=== PATIENT | female | born 1995 | race Caucasian/White ===

== ENCOUNTER → 2020-08-31 17:36 | Outpatient (CLI) | payer MEDICAID, SELFPAY ==
[2020-09-02 07:43] LABS: Rubella Antibodies, IgG 1.99 index (Immune >0.99)
[2020-09-02 11:27] LABS: Hepatitis B Surface Antigen Negative (Negative)
[2020-09-03 13:30] LABS: Varicella-Zoster Ab, IgM <0.91 index (0.00-0.90)
[2020-09-03 17:51] LABS: Measles Antibodies, IgG 72.3 AU/mL (Immune >16.4)
== END ==
PROVIDERS: Visit Provider Nurse Practitioner Family
DX: Z23 Encounter for immunization (principal)
CPT/HCPCS: 86735; 86762; 86765; 86787; 87340

== ENCOUNTER → 2020-09-13 13:59 | Outpatient (CLI) | payer MEDICAID, SELFPAY ==
[2020-09-15 10:45] LABS: Hep B Surface Ab, Qual Non Reactive (.)
[2020-09-16 00:05] LABS: Varicella Zoster IgG 687 index (Immune >165)
== END ==
PROVIDERS: Visit Provider Physician Assistant
DX: Z01.84 Encounter for antibody response examination (principal)
CPT/HCPCS: 86706; 86787

== ENCOUNTER 2020-12-24 10:10 | Emergency (ER) | payer MEDICAID, SELFPAY ==
[2020-12-24 11:24] LABS: UTC Strep Screen (Rapid) Negative (Negative)
[2020-12-24 11:28] VITALS: BP 123/70; PULSE 69; RESP 18; TEMP 36.9; O2SAT 97; BMI 36.8
--- NOTE | 2020-12-24 11:33 | HMH.EDUTC ---
[facility] [place] Clinical Impression: Otitis media Qualifiers: Otitis media type: unspecified Laterality: left Qualified Code(s): H66.92 - Otitis media, unspecified, left ear Disposition: Home, Self-Care Condition on Discharge: Good Instructions: Middle Ear Infections (Alternative Therapy), Middle Ear Infection, Amoxicillin and Clavulanic Acid Additional Instructions: *Monitor Temp, Over the counter Motrin or Tylenol as directed/as needed Tylenol every 4 hours and Motrin every 6 hours (as long as your family doctor has told you that you can take it) for fever or pain. and straight to ER if unable to lower temp less than 101.0 after medication given *Warm salt water gargles may help to soothe the throat *Throat Lozenges *Warm fluids like tea with honey may help to soothe the throat *Sleep elevated *Humidifier/Vaporizer Take medications as prescribed Your throat swab was sent for culture. Those results are typically sent to your primary care. Be sure to follow up in 2-3 days with your family doctor/primary care physician if no improvement so they can review those result and treat if necessary. If you don?t have a primary care doctor, I recommend you get one but in the mean time, you will have to return to a walk in clinic Follow up IMMEDIATELY for new or worsening symptoms or no Noticeable improvement over the next 48-72 hours. 911 for difficulty breathing or swallowing Prescriptions: Amoxicillin/Potassium Clav [Augmentin 875-125 Tablet] 1 tab PO Q12H 10 Days #20 tab Transmission Status: Pending to [facility] # methylPREDNISolone [Medrol 4mg tab] 4 mg PO DIRECTED #21 tab Transmission Status: Pending to [facility] # Referrals: Provider,Referral, [Primary Care Provider] - As needed Forms: Work/School Release Time of Disposition: 11:46 Medical Decision Making - Gabo Inquiry Pt receiving controlled substance: No Gabo was queried for this patient: No Vital Signs: 12/24/20 11:28 Temperature 98.4 F Temperature Source Oral Pulse Rate [Left] 69 Respiratory Rate 18 Blood Pressure [Right Arm] 123/70 Blood Pressure Mean [Right Arm] 87 02 Sat by Pulse Oximetry 97 - Lab Data Lab results reviewed: Yes: I reviewed the patient's lab results. Lab Results 12/24/20 11:23: Strep Scn Rapid Clinic Negative Orders (Tests/Meds): ORDERS Category Date Time Status Strep Screen Confirmation Routine Micro 12/24/20 11:23 Received [facility] [place] - General Stated complaint: sore throat,cough,runny nose,headache Time Seen by Provider: 12/24/20 11:33 Mode of Arrival: Ambulatory Source of Information: Patient Limitations: No Limitations Description of Symptoms (Recalled from Triage Doc. by RN): pt c/o sore throat, hoarseness, nasal drainage, and L ear pain. HEENT Symptoms (Recalled from RN notes): Yes (L ear pain, nasal drainage, and sore throat) Resp Symptoms (Recalled from RN notes): No Skin Symptoms (Recalled from RN notes): No MS Symptoms (Recalled from RN notes): No Functional Status (Recalled from RN notes): na - History of Present Illness Provider Complaint: Patient states that she has been having pain in her left ear, sore throat, and scratchy voice State that the pain in her left ear has continued to get worse so today she could not talk at all so she came in - Related Data Previous Rx's Medication Instructions Recorded Amoxicillin/Potassium Clav 1 tab PO Q12H 10 Days #20 tab 12/24/20 [Augmentin 875-125 Tablet] methylPREDNISolone [Medrol 4mg 4 mg PO DIRECTED #21 tab 12/24/20 tab] Allergies Allergy/AdvReac Type Severity Reaction Status Date / Time Sulfa (Sulfonamide Allergy Unknown Unknown Verified 10/26/20 09:05 Antibiotics) allergy reaction - Worker's Comp Is this a Worker's Comp case?: No [facility] History - Hepatitis A Screen Drug use history?: No High risk sexual behaviors?: No History of sexually transmitted infection?:
[2020-12-24 12:04] VITALS: BP 123/70; PULSE 69; RESP 18; TEMP 36.9
== END 2020-12-24 12:14 | disposition home or self-care (01) ==
PROVIDERS: Emergency Provider Nurse Practitioner; PCP Nurse Practitioner Family
DX: H66.92 Otitis media, unspecified, left ear (principal)
CPT/HCPCS: 87880; 99203; G0463

== ENCOUNTER → 2022-06-17 23:28 | Outpatient (CLI) | payer MEDICAID, SELFPAY | PROVIDERS: PCP Student in an Organized Health Care Education/Training Program; Visit Provider Student in an Organized Health Care Education/Training Program | DX: J02.9 Acute pharyngitis, unspecified (principal) | CPT/HCPCS: 87070 ==

== ENCOUNTER 2022-09-01 12:41 | Emergency (ER) | payer BC, MEDICAID, SELFPAY ==
[2022-09-01 13:07] VITALS: BP 148/100; PULSE 100; RESP 16; TEMP 36.7; O2SAT 98; BMI 35.3
--- NOTE | 2022-09-01 13:16 | EXP.UTC ---
Discharge Plan Disposition Patient Disposition: Still a Patient Condition: Fair Prescriptions Prescriptions: No Action amoxicillin 500 mg capsule 500 mg PO BID 10 Days Qty: 20 0RF Referrals Follow up/Referrals: Provider,Referral, MD [Primary Care Provider] - See instructions Clinical Impressions Clinical Impression: Abdominal pain Discharge ED Provider: Anders De Jesus [facility] [place] HPI General Stated complaint: Abdominal pain; nausea; vomiting Time Seen by Provider: 09/01/22 12:43 History of Present Illness Provider Complaint: She states that for the past 2 days she has had right lower abdominal pain. She states that at first she had diarrhea, but that stopped soon after it started hurting. She also vomited when it first started, but since then she has just had nausea and poor appetite. She denies any fever, but she has had chilling. Related Data Previous Rx's Medication Instructions Recorded amoxicillin 500 mg capsule 500 mg PO BID 10 days #20 caps 06/17/22 Allergies Allergy/AdvReac Type Severity Reaction Status Date / Time Sulfa (Sulfonamide Allergy Unknown Unknown Verified 06/17/22 09:49 Antibiotics) allergy reaction [facility] Disclaimer: The information contained in this section may have been updated after the patient was seen, as this information can be updated by other users. Social History Smoking Status: Never smoker alcohol intake: never current occupational status: employed Travel in the last 8 weeks: None household members: family ROS Obtained: Yes All systems reviewed & no additional complaints except as documented Constitutional Constitutional: Denies chills, Denies fever(s) and Reports poor appetite ENT Ears, Nose, Mouth, and Throat: Denies dizziness and Denies sore throat Cardiovascular Cardiovascular: Denies dyspnea Respiratory Respiratory: Denies chest congestion, Denies cough and Denies dyspnea Gastrointestinal Gastrointestingal: Reports as per HPI Genitourinary Female Genitourinary: Denies difficulty voiding, Denies dysuria, Denies hematuria, Denies urinary frequency, Denies urinary incontinence, Denies urinary hesitancy and Denies urinary urgency Musculoskeletal Musculoskeletal: Denies arthralgias Integumentary/Breasts Skin/Breast: Denies rash Neurologic Neurologic: Denies dizziness Physical Exam General General appearance: alert and in no apparent distress Head Head exam: atraumatic, normocephalic and normal inspection Eye Eye exam: Present normal appearance, PERRL and EOMI ENT ENT exam: Present normal exam, normal oropharynx, mucous membranes moist, TM's normal bilaterally and normal external ear exam Neck Neck exam: Present normal inspection, full ROM and trachea midline; Absent meningismus or lymphadenopathy Chest Chest inspection: Present normal inspection and symmetric chest wall rise; Absent tenderness Respiratory Respiratory exam: Present normal lung sounds bilaterally; Absent respiratory distress Cardiovascular Cardiovascular exam: Present regular rate and normal rhythm; Absent JVD Abdominal Exam Abdominal exam: Present soft and normal bowel sounds; Absent distention, tenderness or guarding Extremities Exam Extremities exam: Present normal inspection, full ROM and normal capillary refill; Absent calf tenderness Back Exam Back exam: Present normal inspection; Absent tenderness Neurological Exam Neurological exam: Present alert and oriented X3 Psychiatric Psychiatric exam: Present normal affect and normal mood Skin Skin exam: Present warm, dry, intact and normal color Lymphatic Lymphatic Findings: no adenopathy Medical Decision Making Medical Records Medical records reviewed: No I reviewed the patient's medical records. Gabo Inquiry Pt receiving controlled substance: No Medical Decision Narrative: She was transferred to the er due to her abdominal pain with no clear etiology.
[2022-09-01 13:25] VITALS: BP 147/86; PULSE 85; O2SAT 100
[2022-09-01 13:50] VITALS: BP 167/107; PULSE 102; RESP 16; TEMP 36.7; O2SAT 99; BMI 35.3
[2022-09-01 14:17] LABS: Basophils % 0.2 % (0.1-2.0); Eosinophils % 0.2 % (0.1-12.0); Hematocrit 43.1 % (37.0-47.0); Hemoglobin 13.8 g/dL (12.2-16.2); Lymphocytes % 10.8 % (10-50); Mean Corpuscular HGB Conc 32.1 g/dL (31.8-35.4); Mean Corpuscular Volume 93.3 fl (81-99); Mean Platelet Volume 8.4 fl (7.4-10.4); Monocytes # 0.5 K/mm3 (0.1-1.0); Monocytes % 5.3 % (1.7-9.3); Neutrophils # 7.6 K/mm3 (1.8-7.8); Neutrophils % 83.5 % (37.0-80.0); Platelet Count 237 K/mm3 (142-424); Red Blood Count 4.62 M/mm3 (4.20-5.40); Red Cell Distribution Width 12.7 % (11.5-17.5); White Blood Count 9.1 K/mm3 (4.8-10.8)
--- NOTE | 2022-09-01 14:23 | HMH.EDGENADL ---
Discharge Plan Disposition Patient Disposition: Home, Self-Care Condition: Fair Prescriptions Prescriptions: No Action amoxicillin 500 mg capsule 500 mg PO BID 10 Days Qty: 20 0RF Referrals Follow up/Referrals: Provider,Referral, MD [Primary Care Provider] - See instructions Clinical Impressions Clinical Impression: Abdominal pain, Diarrhea Instructions Patient Instructions: DI for Acute Abdominal Pain Discharge ED Provider: Rajat Dodson General Adult HPI General Chief complaint: Abdominal Pain Stated complaint: Abdominal pain; nausea; vomiting Time Seen by Provider: 09/01/22 12:43 Mode of Arrival: Ambulatory Source of Information: Patient Limitations: No Limitations Description of Symptoms (Recalled from ER Triage Doc. by RN): Pt reports began having diarrhea of last week, reports began having chills, vomitting and cramping type abd pain. Pt reports yesterday had blood stools x3 episodes, pt reports no appetite and nausea. Pt reports she took prednisone lastnight to help with abd bloating, reports it did help but woke this morning with same symptoms History of Present Illness HPI narrative: This is a 27-year-old female with no relevant medical history presenting with abdominal pain, cramping, diarrhea. Patient states that she started having diarrhea and abdominal cramping 5 days prior to arrival. It was initially watery, was intermittently bloody, then return to being watery. Having numerous episodes a day. Has had multiple episodes of nonbloody, nonbilious emesis. Patient having associated mild abdominal cramping that is lower quadrants, does not radiate. Not associated with fevers, chills, dysuria or hematuria, abnormal vaginal discharge or bleeding. Patient states that [place], nobody else in the trip has similar symptoms. She also has numerous chickens. No other associated environmental exposures or relevant history. Related Data Previous Rx's Medication Instructions Recorded amoxicillin 500 mg capsule 500 mg PO BID 10 days #20 caps 06/17/22 Allergies Allergy/AdvReac Type Severity Reaction Status Date / Time Sulfa (Sulfonamide Allergy Unknown Unknown Verified 06/17/22 09:49 Antibiotics) allergy reaction [facility] Disclaimer: The information contained in this section may have been updated after the patient was seen, as this information can be updated by other users. Social History Smoking Status: Never smoker alcohol intake: never current occupational status: employed Travel in the last 8 weeks: None household members: family ROS Obtained: Yes All systems reviewed & no additional complaints except as documented Physical Exam General General appearance: alert and in no apparent distress Respiratory Respiratory exam: Present normal lung sounds bilaterally; Absent respiratory distress Cardiovascular Cardiovascular exam: Present regular rate and normal rhythm Neurological Exam Neurological exam: Present alert, oriented X3 and CN II-XII intact Skin Skin exam: Present erythema (About neck and face) Medical Decision Making Medical Records Medical records reviewed: Yes I reviewed the patient's medical records. Gabo Inquiry Pt receiving controlled substance: No Gabo was queried for this patient: No Vital Signs: 09/01/22 13:07 09/01/22 13:50 09/01/22 13:25 Temperature 98.1 F 98.1 F Temperature Source Oral Oral Pulse Rate 85 Pulse Rate [Radial] 100 H 102 H Respiratory Rate 16 16 Blood Pressure 147/86 H Blood Pressure [Right Arm] 148/100 H 167/107 H Blood Pressure Mean [Right Arm] 116 127 Blood Pressure Source [Right Arm] Automatic Cuff Blood Pressure Position [Right Arm] Sitting Sitting 02 Sat by Pulse Oximetry 98 99 100 Oxygen Delivery Method Room Air Room Air Lab Data Lab results reviewed: Yes I reviewed the patient'
[2022-09-01 14:26] LABS: Alanine Aminotransferase 23 U/L (12-78); Albumin Level 4.1 g/dl (3.5-5.0); Albumin/Globulin Ratio 1.3 (1.1-1.8); Alkaline Phosphatase 107 U/L (38-126); Anion Gap 11.7 mEq/L (5-15); Aspartate Amino Transferase 32 U/L (14-36); Bilirubin,Total 0.7 mg/dl (0.2-1.3); Blood Urea Nitrogen 10 mg/dl (7-17); Calcium 9.3 mg/dl (8.4-10.2); Carbon Dioxide 29 mmol/L (22.0-30.0); Chloride 104 mmol/L (98-107); Creatinine Clearance Estimated 187 mL/min (50-200); Estimated Glomerular Filt Rate 119 ml/min (>60); GFR (African American) 144 ML/MIN (>60); Globulin 3.1 g/dL (1.3-3.2); Glucose 102 mg/dl (74-100); Lipase 50 U/L (23-300); Potassium 3.7 mmoL/L (3.5-5.1); Sodium 141 mmol/L (136-145); Total Protein,Serum 7.2 g/dl (6.3-8.2)
--- NOTE | 2022-09-01 14:39 | PC.NURSE ---
Warm blanket provided. Pt updated on plan of care.
--- NOTE | 2022-09-01 15:08 | PC.NURSE ---
contacted rad to check on status of u/a results, reports they will be approx 5 mins
[2022-09-01 15:10] LABS: Microscopic, Urine URINE MICROSCOPIC (MICROSCOPIC)
[2022-09-01 15:16] LABS: Appearance,Urine CLEAR (Clear); Blood, Urine TRACE-I (Negative); Color,Urine YELLOW (Yellow); Glucose,Urine (UA) Negative (Negative); Ketones,Urine Negative (Negative); Leukocyte Esterase,Urine Negative (Negative); Nitrate,Urine Negative (Negative); Protein,Urine TRACE (Negative); Specific Gravity, Urine 1.025 (1.005-1.030); Urobilinogen,Urine 0.2 EU/dl (0.2)
[2022-09-01 15:19] LABS: Bilirubin,Urine Negative (Negative)
[2022-09-01 15:20] LABS: Urine Pregnancy, HCG Qual. Negative (Negative)
--- NOTE | 2022-09-01 15:22 | PC.NURSE ---
STOOL SPEC. COLLECTED AND SENT TO LAB
[2022-09-01 15:24] LABS: Adenovirus F 40/41, stool Not Detected (NotDetected); Astrovirus Not Detected (NotDetected); Clostridium Difficile A/B, PCR Not Detected (NotDetected); Cryptosporidium Not Detected (NotDetected); Cyclospora Cayetanesis Not Detected (NotDetected); Entamoeba histolytica Not Detected (NotDetected); Enteroaggregative E coli Not Detected (NotDetected); Enteropathogenic E coli Not Detected (NotDetected); Enterotoxigenic E coli Not Detected (NotDetected); Giardia lamblia Not Detected (NotDetected); Norovirus Not Detected (NotDetected); Plesimonas Shigalloides, PCR Not Detected (NotDetected); Rotavirus A Not Detected (NotDetected); Salmonella, PCR Not Detected (NotDetected); Sapovirus Not Detected (NotDetected); Shiga-like toxin E coli Not Detected (NotDetected); Shigella Enterovasive E coli Not Detected (NotDetected); Vibrio Cholerae Not Detected (NotDetected); Vibrio, PCR Not Detected (NotDetected); Yersinia Entercolitica, PCR Not Detected (NotDetected)
[2022-09-01 15:36] LABS: Occult Blood,Stool Positive (Negative)
--- NOTE | 2022-09-01 15:37 | PC.NURSE ---
ER MD Dodson at
[2022-09-01 15:40] VITALS: BP 128/79; PULSE 61; O2SAT 100
--- NOTE | 2022-09-01 15:43 | PC.NURSE ---
rounded on pt, pt sitting up in bed, states no needs at this time, call light in reach
[2022-09-01 15:55] VITALS: BP 128/79; PULSE 72; RESP 18; TEMP 36.7; O2SAT 100
[2022-09-01 17:08] LABS: Bacteria,Urine Trace /lpf; Mucus,Urine Trace /lpf; Squamous Epithelial Cell,Urine Occasional #/hpf (0-5)
[2022-09-01 17:14] LABS: Campylobacter Detected (NotDetected)
--- NOTE | 2022-09-01 17:23 | PC.NURSE ---
lab called with results of diarrhea panel. Notified EM Ortiz, states no treatment needed for unless dehydrated or not tolerated diarrhea well. Called pt to notify her of diarrhea panel results and what EM Ortiz had stated. Also cautioned pt about needing to contact infection control prior to returning to work.
== END 2022-09-01 15:55 | disposition home or self-care (01) ==
LOC: ER 13:04 → UTC 13:06 → ER 13:31
PROVIDERS: Emergency Provider Emergency Medicine
DX: R10.31 Right lower quadrant pain (principal); R10.32 Left lower quadrant pain; R19.7 Diarrhea, unspecified; R11.2 Nausea with vomiting, unspecified
CPT/HCPCS: 80053; 81001; 81025; 82272; 83690; 85025; 87045; 87506; 96361; 96374; 99285; G0328; J2405

== ENCOUNTER → 2023-01-23 23:53 | Outpatient (CLI) | payer BC, SELFPAY | PROVIDERS: PCP Student in an Organized Health Care Education/Training Program; Visit Provider Student in an Organized Health Care Education/Training Program | DX: J02.9 Acute pharyngitis, unspecified (principal) | CPT/HCPCS: 87070 ==

== ENCOUNTER 2023-03-15 09:09 | Emergency (ER) | payer BC, SELFPAY ==
[2023-03-15 09:20] VITALS: BP 108/70; PULSE 82; RESP 22; TEMP 37; O2SAT 97; BMI 38.3
[2023-03-15 09:38] LABS: UTC Strep Screen (Rapid) Negative (Negative)
[2023-03-15 09:39] VITALS: BP 108/70; PULSE 82; RESP 22; TEMP 37; O2SAT 97
--- NOTE | 2023-03-15 09:42 | EXP.UTC ---
Discharge Plan Disposition Patient Disposition: Home, Self-Care Condition: Good Prescriptions Prescriptions: New amoxicillin 500 mg capsule 500 mg PO BID 10 Days Qty: 20 0RF Referrals Follow up/Referrals: Provider,Referral, MD [Primary Care Provider] - See instructions Activity Restrictions/Add. Instructions Additional Instructions/Restrictions: *Monitor Temp, Over the counter Motrin or Tylenol as directed/as needed Tylenol every 4 hours and Motrin every 6 hours (as long as your family doctor has told you that you can take it) for fever or pain. and straight to ER if unable to lower temp less than 101.0 after medication given *Warm salt water gargles may help to soothe the throat *Throat Lozenges? *Warm fluids like tea with honey may help to soothe the throat? *Sleep elevated *Humidifier/Vaporizer *Your throat swab was sent for culture. Those results are typically sent to your primary care. Be sure to follow up in 2-3 days with your family doctor/primary care physician if no improvement so they can review those result and treat if necessary. If you don?t have a primary care doctor, I recommend you get one but in the mean time, you will have to return to a walk in clinic Follow up IMMEDIATELY for new or worsening symptoms or no Noticeable improvement over the next 48-72 hours. 911 for difficulty breathing or swallowing Clinical Impressions Clinical Impression: Pharyngitis Qualifiers: Pharyngitis/tonsillitis etiology: unspecified etiology Qualified Code(s): J02.9 - Acute pharyngitis, unspecified Instructions Patient Instructions: Sore Throat Discharge ED Provider: Cari Ferguson [facility] General Stated complaint: sore throat Mode of Arrival: Ambulatory Source of Information: Patient Limitations: No Limitations Time Seen by Provider: 03/15/23 09:42 Description of Symptoms (Recalled from Triage Doc. by RN): PATIENT C/O SORE THROAT SINCE YESTERDAY HEENT Symptoms (Recalled from RN notes): Yes Resp Symptoms (Recalled from RN notes): No Skin Symptoms (Recalled from RN notes): No MS Symptoms (Recalled from RN notes): No Functional Status (Recalled from RN notes): WNL History of Present Illness Provider Complaint: Patient states that she has been having sore throat for the last couple of days and got worse yesterday States that her kids are home with strep throat and now feels like she may have it too so she came in Related Data Previous Rx's Medication Instructions Recorded amoxicillin 500 mg capsule 500 mg PO BID 10 days #20 caps 03/15/23 Allergies Allergy/AdvReac Type Severity Reaction Status Date / Time Sulfa (Sulfonamide Allergy Unknown Unknown Verified 01/23/23 08:14 Antibiotics) allergy reaction Worker's Comp Is this a Worker's Comp case?: No [facility] Disclaimer: The information contained in this section may have been updated after the patient was seen, as this information can be updated by other users. Medical History (Updated 03/15/23 @ 09:45 by Cari Ferguson APRN) No significant past medical history Surgical History (Updated 01/23/23 @ 08:15 by Rylee Alcaraz) No significant past surgical history Family History (Updated 01/23/23 @ 08:15 by Rylee Alcaraz) Other No significant family history Social History Smoking Status: Never smoker alcohol intake: never current occupational status: employed Travel in the last 8 weeks: None household members: family ROS Obtained: Yes All systems reviewed & no additional complaints except as documented and Yes Systems reviewed as appropriate & no additional complaints except as documented Constitutional Constitutional: Reports system reviewed and no additional complaints, except as documented, Reports as per HPI and Reports headache(s) ENT Ears, Nose, Mouth, and Throat: Reports system reviewed and no additional complaints, except as documented, Reports as per HPI, Reports headache(s) and Reports sore throat Cardiovascular Cardiovascular: Reports system reviewed and no additional complaints, except as documented and Reports as per HPI Respiratory Respiratory: Reports system reviewed and no additional complaints, except as documented and Reports as per HPI Gastrointestinal Gastrointestingal: Reports system reviewed and no additional complaints, except as documented and as per HPI Neurologic Neurologic: Reports headache(s) Physical Exam General General appearance: alert and in no apparent distress ENT ENT exam: Present mucous membranes moist Expanded ENT Exam Throat exam: Present tonsillar erythema Respiratory Respiratory exam: Present normal lung sounds bilaterally; Absent respiratory distress or wheezes Cardiovascular Cardiovascular exam: Present regular rate, normal rhythm and normal heart sounds Neurological Exam Neurological exam: Present alert, oriented X3 and normal gait Medical Decision Making Gabo Inquiry Pt receiving controlled substance: No Gabo was queried for this patient: No Vital Signs: 03/15/23 09:20 03/15/23 09:39 Temperature 98.6 F 98.6 F Temperature Source Oral Pulse Rate 82 Pulse Rate [Right Brachial] 82 Respiratory Rate 22 22 Blood Pressure 108/70 L Blood Pressure [Right Arm] 108/70 L Blood Pressure Mean [Right Arm] 82 Blood Pressure Source [Right Arm] Automatic Cuff Blood Pressure Position [Right Arm] Sitting 02 Sat by Pulse Oximetry 97 Oxygen Delivery Method Room Air Lab Data Lab results reviewed: Yes I reviewed the patient's lab results. Lab Results 03/15/23 09:23: Strep Scn Rapid Clinic Negative Orders (Tests/Meds): ORDERS Category Date Time Status Strep Screen Confirmation Stat Micro 03/15/23 09:23 Received
== END 2023-03-15 09:45 | disposition home or self-care (01) ==
PROVIDERS: Emergency Provider Nurse Practitioner
DX: J02.9 Acute pharyngitis, unspecified (principal); R51.9 Headache, unspecified; Z20.818 Contact with and (suspected) exposure to other bacterial communicable diseases
CPT/HCPCS: 87880; 99212; 99214; G0463

== ENCOUNTER 2023-06-13 02:10 | Outpatient (CLI) | payer BC, SELFPAY ==
[2023-06-16 17:16] LABS: Parvovirus B19, IgG 3.6 index (0.0-0.8); Parvovirus B19, IgM 0.2 index (0.0-0.8)
== END 2023-06-13 23:59 | disposition home or self-care (01) ==
LOC: LAB 02:11
PROVIDERS: Visit Provider Obstetrics & Gynecology Reproductive Endocrinology
DX: Z01.84 Encounter for antibody response examination (principal); B97.6 Parvovirus as the cause of diseases classified elsewhere
CPT/HCPCS: 86747

== ENCOUNTER 2024-03-30 16:11 | Emergency (ER) | payer BC, SELFPAY ==
[2024-03-30 16:12] VITALS: BP 125/93; PULSE 92; RESP 20; TEMP 36.6; O2SAT 99; BMI 37.8
--- NOTE | 2024-03-30 16:25 | XR_ITS ---
PROCEDURE INFORMATION: Exam: XR Left Foot Exam date and time: 03/30/2024 4:30 PM Age: 28 years old Clinical indication: Pain; Foot; Left; Additional info: Midfoot3-5 metatarsal pain and swelling TECHNIQUE: Imaging protocol: Radiologic exam of the left foot. Views: 3 or more views. COMPARISON: No relevant prior studies available. FINDINGS: Bones/joints: Normal. No fracture or destructive bone lesion. Soft tissues: Mild soft tissue swelling along the dorsum of the left foot. No evidence of a radiopaque foreign body or gas in the soft tissues. IMPRESSION: Mild soft tissue swelling along the dorsum of the left foot, otherwise normal study.
[2024-03-30] MEDS: predniSONE 20MG TAB 40 MG PO (16:27)
--- NOTE | 2024-03-30 16:35 | [facility].EDGENADL ---
Discharge Plan Disposition Patient Disposition: Home, Self-Care Prescriptions Prescriptions: New prednisone 20 mg tablet 40 mg PO DAILY 5 Days Qty: 10 0RF Referrals Follow up/Referrals: Iker Rogers DO [Staff Physician] - See instructions Provider,MD Duyen [Primary Care Provider] - See instructions Daniel Nichols MD [Staff Physician] - See instructions Activity Restrictions/Add. Instructions Additional Instructions/Restrictions: Prednisone each day for the next 5 days. Call your family doctor to establish care for this visit to the emergency department and schedule follow-up within 48 hours to ensure improvement. If you have any worsening of your condition or any other concerning signs or symptoms, return to the emergency department or your primary care doctor for further evaluation. Clinical Impressions Clinical Impression: Localized swelling of left foot Print Language Print Language: Bengali Discharge ED Provider: Rajat Dodson General Adult HPI General Chief complaint: Extremity Problem,Nontraumatic Stated complaint: LT foot pain Time Seen by Provider: 03/30/24 16:18 Mode of Arrival: Ambulatory Source of Information: Patient Limitations: No Limitations Description of Symptoms (Recalled from ER Triage Doc. by RN): c/o left foot pain, mostly third/fourth and fifth toe has a deep throbbing pain for 5 months, reports that walking makes the pain more and resting improves pain. The pain has increased in the last 2 months. PT denies any injury, reports she thought it was due to extra weight from , although no improvement after . History of Present Illness HPI narrative: Please note that above description of symptoms, in this electronic medical record under categorization of recalled from ER triage doctor by RN are reflective of an initial nursing assessment, however, is not reflective of my full history and physical exam that was personally taken and clarified. Consequentially, this preceding description of symptoms, which may include the patient's categorized chief complaint in the EMR, do not reflect my personal clinical impression, and the ultimate description of history of present illness and patient stated complaints should be deferred to this section of the note. Unless stated otherwise or congruent with this section of the note, additional signs, symptoms, or incongruence should be interpreted as inaccurate with my clinical impression. Related Data Previous Rx's ?Medication ?Instructions ?Recorded prednisone 20 mg tablet 40 mg (2 x 20 mg) PO DAILY 5 days 03/30/24 #10 tabs Allergies Allergy/AdvReac Type Severity Reaction Status Date / Time Sulfa (Sulfonamide Allergy Unknown Unknown Verified 01/23/23 08:14 Antibiotics) allergy reaction [facility] Disclaimer: The information contained in this section may have been updated after the patient was seen, as this information can be updated by other users. Medical History (Updated 03/30/24 @ 17:14 by Rajat Dodson MD) No significant past medical history Surgical History (Updated 01/23/23 @ 08:15 by Rylee Simon) No significant past surgical history Family History (Updated 01/23/23 @ 08:15 by Rylee Simon) Other No significant family history Social History Smoking Status: Never smoker alcohol intake: never current occupational status: employed Travel in the last 8 weeks: None household members: family Have you lived/traveled outside [place] in past 30 days?: No Contact w/someone who lives/traveled outside [place] past 30 days?: No Exposure to someone with infectious disease in past 14 days?: No Do you have a fever (greater than 100.4 F or 38 C)?: No Have you tested positive for COVID-19: No Exposed to someone with COVID-19 in past 14 days?: No Do you have a sore throat?: No Do you have a cough?: No Do you have any weakness?: No Do you have any diarrhea?: No Are you experiencing any unusual bleeding?: No Do you have any muscle aches/pain?: No Do you have any abdominal pain?: No Are you experiencing loss of taste or smell?: No Other Medical History Have you received the Pneumonia Vaccine: No ROS Obtained: Yes All systems reviewed & no additional complaints except as documented Physical Exam General General appearance: alert Head Head exam: atraumatic and normocephalic Eye Eye exam: Present normal appearance, PERRL and EOMI Neck Neck exam: Present normal inspection, full ROM and trachea midline Respiratory Respiratory exam: Absent respiratory distress, wheezes, stridor, accessory muscle use or prolonged expiratory phase Cardiovascular Cardiovascular exam: Present other (Pulses equal symmetric in upper and lower extremities) Abdominal Exam Abdominal exam: Present soft; Absent distention, tenderness or pulsatile mass Extremities Exam Extremities exam: Present other (Normal left foot); Absent edema Neurological Exam Neurological exam: Present alert, oriented X3 and CN II-XII intact; Absent motor sensory deficit Skin Skin exam: Present warm and dry; Absent diaphoresis or erythema Medical Decision Making Medical Records Medical records reviewed: Yes I reviewed the patient's medical records. Screening: Per USPSTF and CDC recommendations, given the prevalence of disease in our region, it is our hospital?s policy to screen for HIV and viral Hepatitis for all patients aged 18 and over and those with ongoing risk factors. Gabo Inquiry Pt receiving controlled substance: No Gabo was queried for this patient: No Vital Signs: 03/30/24 16:12 Temperature 97.9 F Temperature Source Oral Pulse Rate [Left Radial] 92 H Respiratory Rate 20 Blood Pressure [Right Arm] 125/93 H Blood Pressure Mean [Right Arm] 103 02 Sat by Pulse Oximetry 99 Oxygen Delivery Method Room Air Orders (Tests/Meds): ED MEDICATIONS Discontinued Medications Generic Name Dose Route Start Last Admin Trade Name Freq PRN Reason Stop Dose Admin Prednisone 40 mg 03/30/24 16:22 03/30/24 16:27 Prednisone 20mg Tab PO 03/30/24 16:23 40 mg ONCE ONE Administration ORDERS Category Date Time Status Foot XR left minimum 3 views [XR foot LT min 3V] Stat Exams 03/30/24 16:25 Completed Medical Decision Narrative: 28-year-old female presenting with atraumatic left foot pain. States that has been going on for about 6 months, but she does not have a family doctor in order to follow-up with. Started when she was , she is 2 months status post delivery and still continuing to hurt. States it only hurts when she is bearing weight on it sometimes, but actually hurts worse when she is laying down in bed and its under the covers with heat. States that it throbs. No trauma to the area, states that sometimes it swells. Currently largely asymptomatic. History obtained and patient. On arrival, she is very well-appearing. Ambulatory and does not appear to be antalgic. Neurovascular intact, completely normal foot on my exam. No tenderness elicited. Differential includes sprain, strain, arthropathy, inflammatory, among others. I feel unlikely that this is any life or limb threatening pathology and will likely respond to anti-inflammatories given appearance of the foot and duration of symptoms. X-rays obtained out of abundance of caution, on independent interpretation these demonstrated some swelling, but no bony abnormalities. Prednisone given. Because patient at baseline without signs or symptoms of clinical decompensation, deemed appropriate for discharge. Results were relayed to patient who voiced understanding and were agreeable to outpatient management and follow up. I discussed my clinical impression with patient and answered all questions. At this time, the evidence for any other entities in the differential is insufficient to warrant any further testing or ED observation. This was explained as well. Advisory was given that persistent or worsening symptoms require further evaluation. I confirmed the understanding of this discussion. Prednisone sent to pharmacy, family doctor follow-up arranged with Dr. Nichols. Interdisciplinary Professor disclaimer Much of this encounter note is an electronic environmental health safety manager spoken language to printed text. Electronic environmental health safety manager of the spoken language may permit errors. Although I have reviewed the note, some errors may still exist. Critical Care Critical Care Time Critical Care Time: No
[2024-03-30 17:22] VITALS: BP 126/72; PULSE 88; RESP 20; TEMP 36.6; O2SAT 99
== END 2024-03-30 17:23 | disposition home or self-care (01) ==
PROVIDERS: Emergency Provider Emergency Medicine
DX: M79.672 Pain in left foot (principal); R22.42 Localized swelling, mass and lump, left lower limb
CPT/HCPCS: 73630; 99283

== ENCOUNTER 2024-11-09 14:06 | Outpatient (CLI) | payer BC, SELFPAY ==
[2024-11-09 22:16] LABS: Hematocrit 39.6 % (37.0-47.0); Hemoglobin 13.3 g/dL (12.2-16.2); Immature Granulocytes % 0.3 %; Mean Corpuscular HGB Conc 33.6 g/dL (31.8-35.4); Mean Corpuscular Hemoglobin 30.6 pg (27.0-31.2); Mean Corpuscular Volume 91.0 fl (81-99); Nucleated Red Blood Cells % 0 %; Platelet Count 294 K/mm3 (142-424); Red Blood Count 4.35 M/mm3 (4.20-5.40); Red Cell Distribution Width-SD 41.5 fL; White Blood Count 7.3 K/mm3 (4.8-10.8)
[2024-11-09 22:43] LABS: Alanine Aminotransferase 19 U/L (12-78); Albumin Level 4.3 g/dl (3.5-5.0); Anion Gap 15.7 mEq/L (5-15); Aspartate Amino Transferase 24 U/L (14-36); Bilirubin,Total 1.2 mg/dl (0.2-1.3); Blood Urea Nitrogen 11 mg/dl (7-17); Calcium 9.3 mg/dl (8.4-10.2); Carbon Dioxide 24 mmol/L (22.0-30.0); Chloride 102 mmol/L (98-107); Creatinine,Serum 0.80 mg/dl (0.52-1.04); Estimated Glomerular Filt Rate 84 ml/min (>60); GFR (African American) 102 ML/MIN (>60); Globulin 2.3 g/dL (1.3-3.2); Glucose 76 mg/dl (74-100); Potassium 4.7 mmoL/L (3.5-5.1); Sodium 137 mmol/L (136-145); Total Protein,Serum 6.6 g/dl (6.3-8.2)
[2024-11-09 22:44] LABS: Albumin/Globulin Ratio 1.9 (1.1-1.8); Alkaline Phosphatase 132 U/L (38-126); Cholesterol 162 mg/dl (140-200); HDL Cholesterol 46 mg/dl (40-60); Triglycerides 90 mg/dl (30-150)
[2024-11-09 23:04] LABS: 25-OH Vitamin D, Total 19.6 ng/mL (30-100)
[2024-11-09 23:14] LABS: Thyroid Stimulating Hormone 1.01 uIU/mL (0.465-4.68)
--- OUTSIDE RECORDS SUMMARY | 2024-11-10 11:40 | XMS_ITS | Clinical Summary ---
Author Organization [facility] Address [address] [place] [address] Care Team Providers Care Rough Carpenter Name Role Phone Provider, No Known Primary Care Provider Unavail able Allergies Active Allergy Reactions Criticality Noted Date Comments Sulfa Antibiotics Rash Low 10/26/2020 Medications No known medications Active Problems Problem Noted Date Diagnosed Date Flow murmur 11/10/2023 Overview (11/10/2023): Referral with cardiology for presyncope episode this dx with flow murmur Echo scheduled. 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 Father the baby's tested and was negative. We did discuss that this greatly reduces the risk of cystic fibrosis for this fetus though does not completely eliminate the risk. Resolved Problems Problem Noted Date Diagnosed Date Resolved Date Headache in , antep artum, third trimester 01/11/2024 01/14/2024 Low-lying placenta without h emorrhage, third trimester 12/04/2023 12/21/2023 Marginal placenta previa 11/10/2023 Overview (11/10/2023): Start NST 2x week-Marginal cord insertion;marginal previa; hx ghtn; and new diagnosis of maternal cardiac murmur. Gestational edema in third trimester 11/10/2023 12/04/2023 Placenta previa in second trimester 09/24/2023 12/04/2023 Assessment & Plan (09/24/2023 10:28 AM EDT): Today's ultrasound shows marginal posterior previa. Placenta previa is a term used to describe a placenta that is implanted over or very near the internal cervical os. Previas can be classified as total where the internal os is covered completely by the placenta, partial where the internal os is partially covered by the placenta and marginal where the edge of the placenta is at the margin of the internal cervical os. With both total and partial placenta previa, a certain degree of spontaneous placental separation is an inevitable consequence of lower uterine segment formation and cervical dilatation. Such separation is usually associated with hemorrhage. Risk factors for placenta previa include advancing maternal age, multiparity and prior delivery. delivery is necessary in practically all women with placenta previa. Because of the poorly contractile nature of the lower uterine segment, uncontrollable hemorrhage can follow placental removal. Oversewing of the implantation site or uterine packing can be used to control hemorrhage in these situations. We discussed careful return precautions regarding cramping, labor, vaginal bleeding. We discussed pelvic rest. Marginal insertion of umbili calista cord affecting management of mother in second trimester 09/24/2023 12/04/2023 Overview (11/10/2023): Start NST 2x week-Marginal cord insertion;marginal previa; hx ghtn; and new diagnosis of maternal cardiac murmur. Assessment & Plan (09/24/2023 10:29 AM EDT): Marginal cord insertion is noted. We did discuss the potential for growth abnormalities. The marginal cord insertion does not appear to be near the cervical os given her placenta previa therefore unlikely to be vasa previa. renal anomaly, single gestation 09/24/2023 12/04/2023 Overview (10/27/2023): Resolved @ 27w6d Mild right renal pelvis dilation 23 wks PDC Assessment & Plan (09/24/2023 10:31 AM EDT): Right renal pelvis dilatation (urinary tract dilation/UTD) is seen. Normal measurements at this age would be less than 4mm, but the renal measurements today were 4.6 mm on the right. The bladder, amniotic fluid, renal parenchyma and calyces appear normal. This is consistent with UTD A1: low risk. The fetus appears to be a male. These findings are most consistent with transient or physiologic dilation but could also be reflux or ureteropelvic junction obstruction. Most of these cases remain stable or improve during gestation although they have been known to worsen occasionally. Additionally, UTD has a weak association with aneuploidy, most significantly with Trisomy 21 or Down Syndrome. We discussed options for genetic testing including NIPT versus amnio versus surveillance. Patient would like to discuss this further with primary DUST PULLER. Recommendations: 1. Should UTD persist or worsen in gestation, follow up for the may be recommended. evaluation typically consists of an ultrasound in the first month of life and again 1-6 months later. If severe worsening occurs during , they may benefit from an consultation with a pediatric urology. 07/01/2023 02/25/2024 Overview (12/21/2023): 2 prev term, 7#3oz She desires NIPT with glucola EFW 43%ile 33 wks Previous complicat ed by -induced hypertension, antepartum 07/01/2023 02/25/2024 Overview (09/24/2023): G1 GHTN G2 preeclampsia Baseline labs, 24h urine 141mg Baby asa. Assessment & Plan (09/24/2023 9:52 AM EDT): Women with a history of previous preeclampsia are at increased risk of preeclampsia and other adverse outcomes in subsequent pregnancies. The magnitude of this risk is dependent on gestational age at time of disease onset, severity of disease and the presence or absence of preexisting medical disorders. The objective in the management of these patients is to reduce risk factors by optimizing maternal health before conception and to detect obstetric complications as early as possible. This objective can be achieved by formulating a rational approach that includes preconception evaluation and counseling, early care, frequent monitoring of maternal and well-being and timely delivery. In 2014, the USPSTF (U.S. Preventive Services Task Force) recommended low-dose aspirin after 12 weeks' gestation for women at high risk for preeclampsia ([employer] Med 2014; 161:819). In a 2020 update, researchers incorporated data from several newer trials, including the large, multicenter ASPRE trial (N Engl J Med 2017; 377:613). The Task Force continues to recommend daily low-dose aspirin (81 mg/day) after 12 weeks' gestation as a preventive measure for women at high risk for preeclampsia. (B recommendation; moderate-certainty evidence of substantial net benefit). As data on optimal risk prediction for preeclampsia are lacking, the USPSTF again offers a pragmatic approach to identifying at-risk individuals. It recommends treatment for women with one or more high-risk factors or two or more moderate- risk factors. High-risk factors: History of preeclampsia, multifetal gestation, chronic hypertension, pregestational (type 1 or type 2) diabetes, kidney disease, or autoimmune disease (e.g., systemic lupus erythematous, antiphospholipid syndrome). Moderate-risk factors: Nulliparity, body-mass index >=30 kg/m2, family history (i.e., preeclampsia in mother or sister), age >=35, in vitro conception, personal history factors (i.e., previous adverse outcome or intrauterine growth restriction >=10-year interval), lower socioeconomic status, or Black race (due to a confluence of environmental, social and historical inequities rather than biology). Although the 2014 USPSTF recommendations are unchanged, pooling of additional data for the meta-analysis strengthens evidence of safety as well as efficacy (lower risk for preeclampsia, and growth restriction) of low-dose aspirin. Lastly, the meta-analysis further validates the association between low-dose aspirin and lower mortality (relative risk reduction, 21%). I recommend more frequent monitoring for signs and symptoms of severe hypertension or preeclampsia than that recommended for normal . This monitoring may include more frequent visits, home blood pressure monitoring or nursing contacts. Patient is currently on ASA supplementation. She has also had baseline 24 hour urine protein and serum pre-e evaluation that were normal. resulting from in vitro fertilization, antepartum 07/01/2023 02/25/2024 Overview (07/01/2023): echo 24 wks Assessment & Plan (09/24/2023 9:50 AM EDT): We discussed that pregnancies as a result of IVF are increased risk of cardiac abnormalities. echo was performed today. We did discuss the limitations of echo including diagnosing small VSDs and valvular abnormalities. Immunizations Immunization Administration Dates Next Due ABRYSVO (RSV, 60+ or women 32-36 wks) 1 Hepatitis B Adult/Adolescent IM 10/26/2020,09/20 Tdap 11/10/2023,09/10/2020 Family History Medical History Relation Name Comments No Known Problems Father Diabetes Maternal Grandmother Aleena Andres Osteoporosis Mother Carole Fernandez Relation Name Status Comments Father Unknown Maternal Grandmother Aleena Andres Mother Carole Fernandez Alive Social History Tobacco Use Types Packs/Day Years Used Date Smoking Tobacco: Former Cigarettes 0 07/10/2012 - 09/07/2020 Smokeless Tobacco: Never Tobacco Cessation:Counseling Given: Not Answered Alcohol Use Standard Drinks/Week Comments Not Currently 0 (1 standard drink = 0.6 oz pur e alcohol) Alcohol use pre- [facility] Utilities Answer Date Recorded In the past 12 months has [employer], gas, oil, or water [employer] threatened to shut off services in your home? No 01/14/2024 [employer]UD[employer]-C Answer Date Recorded Q1: How often do you have a drink containing alcohol? Never 01/14/2024 Q2: How many drinks containi ng alcohol do you have on a typical day when you are drinking? Patient does not drink Q3: How often do you have si x or more drinks on one occasion? Never 01/14/2024 Overall Financial Resource Strain (CARDIA) Answe r Date Recorded How hard is it for you to pa y for the very basics like food, housing, medical care, and heating? Not hard at all 01/14/2024 [facility] [place] [facility] Occupat ional Health - Occupational Stress Questionnaire Answer Date Recorded Do you feel stress - tense, restless, nervous, or anxious, or unable to sleep at night because your mind is troubled all the time - these days? Not at all 01/14/2024 Exercise Vital Sign Answer Date Recorde d On average, how many days pe r week do you engage in moderate to strenuous exercise (like a brisk walk)? 2 days 01/14/2024 On average, how many minutes do you engage in exercise at this level? 10 min 01/14/2024 Hunger Vital Sign Answer Date Recorded Within the past 12 months, y ou worried that your food would run out before you got the money to buy more. Never true 01/14/20 24 Within the past 12 months, t he food you bought just didn't last and you didn't have money to get more. Never true 01/14/2024 PRAPARE - Transportation Answer Date Re corded In the past 12 months, has l ack of transportation kept you from medical appointments or from getting medications? No 06/2023 In the past 12 months, has l ack of transportation kept you from meetings, work, or from getting things needed for daily living? No 01/14/2024 [place] Depression Scale Answer Date Recorded [place] Depression Scale Total 0 01/15/2024 The thought of harming myself has occurred to me . Never 01/15/2024 Abuse Screen Answer Date Recorded Feels Unsafe at Home or Work/School no 01/14/2024 Feels Threatened by Someone no 06/2023 Does Anyone Try to Keep You From Having Contact with Others or Doing Things Outside Your Home? no 01/14/2024 Physical Signs of Abuse Present no 01/14/2024 Housing Stability Answer Date Recorded Current Living Arrangements home 06/2023 Potentially Unsafe Housing Conditions none 01/14/2024 Family and Community Support Answer Tyshawn e Recorded If for any reason you need h elp with day-to-day activities such as bathing, preparing meals, shopping, managing finances, etc., do you get the help you need? I don't need any help 01/14/2024 How often do you feel lonely or isolated from those around you? Never 01/14/2024 Employment Answer Date Recorded Do you want help finding or keeping work or a job? I do not need or want help 01/14/2024 Disabilities Answer Date Recorded Difficulty Concentrating, Remembering or Making Decisions no 01/14/2024 Difficulty Managing Errands Independently no 01/14/2024 Education Answer Date Recorded Do you want help with school or training? For example, starting or completing job training or getting a high school diploma, GED or equivalent No 01/14/2024 Preferred Language Romanian 01/14/2024 PHQ-2 Answer Date Recorded Patient Health Questionnaire-2 Score 0 01/14/2024 Comments No Sex and Gender Information Value Date Recorded Sex Assigned at Not on file Legal Sex Female 12:20 PM EDT Gender Identity Not on file Sexual Orientation Not on file Last Filed Vital Signs Vital Sign Reading Time Taken Comments Blood Pressure 116/80 02/25/2024 11:01 AM EST Pulse 73 01/17/2024 7:59 AM EST Temperature 36.9 C (98.5 F) 01/17/2024 7:59 AM EST Respiratory Rate 16 01/17/2024 7:59 AM EST Oxygen Saturation 98% 01/15/2024 12:02 AM EST Inhaled Oxygen Concentration - - Weight 100 kg (221 lb) 02/25/2024 11:01 AM EST Height 157.5 cm (5' 2 ) 02/25/2024 11:01 AM EST Body Mass Index 40.42 02/25/2024 11:01 AM EST Plan of Treatment Upcoming Encounters Date Type Department Care Team (Late st Contact Info) Description 03/03/2025 9:30 AM EST Office Visit [facility] OBGYN [address] [phone] Deepika Craig MD [address] [address] Health Maintenance Due Date Last Done Comments Annual Gynecologic Pelvic an d Breast Exam 1994 PAP SMEAR 09/01/2015 ANNUAL PHYSICAL 07/01/2023 INFLUENZA VACCINE 09/09/2024 TDAP/TD VACCINES (3 - Td or Tdap) 11/09/2033 11/10/2023, 09/10/2020 HEPATITIS C SCREENING Completed 07/01/2023 Pneumococcal Vaccine 0-49 Aged Out No longer eligible based on patient's age to complete this topic Procedures Procedure Name Priority Date/Time Associated Diagnosis Comments OBSTETRIC PANEL Routine 07/01/2023 2:25 PM EDT care, antepartum from Last 3 Months or Most Recently Relevant to Health Maintenance Results * Obstetric Panel (07/01/2023 2:25 PM EDT) Hepatitis B Surface Ag Negative Negative [facility] Hep C Virus Ab Non Reactive Non Reactive [facility] Comment: HCV antibody alone does not differentiate between previously resolved infection and active infection. Equivocal and Reactive HCV antibody results should be followed up with an HCV RNA test to support the diagnosis of active HCV infection. RPR Non Reactive Non Reactive [facility] Rubella Antibodies, IgG 1.45 Immune >0.99 index [facility] Comment: Non-immune <0.90 Equivocal 0.90 - 0.99 Immune >0.99 ABO Type O [facility] Rh Factor Positive [facility] Comment: Please note: Prior records for this patient's ABO / Rh type are not available for additional verification. Antibody Screen Negative Negative [facility] Blood 07/01/2023 2:25 PM EDT 07/01/2023 Narrative [facility] ([facility]) - 07/03/2023 10:12 AM EDT Performed at: 01 - [facility] [id number] Fx Artist: Rickey Henley PhD, Phone: [phone] Patient Fasting: N us Deepika Craig MD LAB BLOOD ORDERABLES Final Resul t [facility] ([facility]) [address] [place] [address], [facility] [address] [place] [address], from Last 3 Months or Most Recently Relevant to Health Maintenance Insurance [place] [address] [employer] PPO Advance Directives * CPR (Attempt to Resuscitate) (Latest Code Status on File) Date Activated Date Inactivated Comments 01/15/2024 2:44 PM 01/17/2024 1:42 PM Question Answer Comments Code Status (Patient has no pulse and is not breathing): CPR (Attempt to Resuscitate) Medical Interventions (Patie nt has pulse or is breathing): Full * CPR (Attempt to Resuscitate) Date Activated Date Inactivated Comments 01/14/2024 9:30 PM 01/15/2024 2:44 PM Question Answer Comments Code Status (Patient has no pulse and is not breathing): CPR (Attempt to Resuscitate) Medical Interventions (Patie nt has pulse or is breathing): Full Support Level Of Support Discussed With: Patient Care Teams Rough Carpenter Relationship Specialty Start Date End Date Provider, [place] [address] PCP - General 07/01/23
== END 2024-11-09 23:59 ==
LOC: LAB.DROPOF 11-10 11:38
PROVIDERS: PCP Family Medicine; Visit Provider Family Medicine
DX: O90.89 Other complications of the puerperium, not elsewhere classified (principal); E55.9 Vitamin D deficiency, unspecified; L65.9 Nonscarring hair loss, unspecified; E66.9 Obesity, unspecified
CPT/HCPCS: 80053; 80061; 82306; 84443; 85025